=== PATIENT | male | born 1945 | race African-American/Black ===

== ENCOUNTER → 2016-11-07 | Outpatient (CLI) | payer OTHER, MEDICARE | LOC: RAD 10:44 | DX: M25.571 Pain in right ankle and joints of right foot (principal) ==

== ENCOUNTER → 2017-02-09 | Outpatient (CLI) | payer OTHER, MEDICARE ==
[~2017-02-09] MED LIST: ALDACTONE25 MG PO; AMARYL2 MG PO; ASPIR 8181 MG PO; ATORVASTATIN CA40 MG PO; COLACE100 MG PO; COREG3.125 MG PO; COZAAR 25 MG TA25 M1 PO; DUONEB 2.5-0.5 M3 ML INH; LASIX 40 MG TAB40 M2 PO; LIDODERM 5%1 PATC1 TRANSDERM; MILK OF MA400 MG/5 M PO; MIRALAX17 GM PO; ONDANSETRON HCL4 M2 PO; PLAVIX 75 MG TA75 M1 PO; POTASSIUM20 PO; SENOKOT-S1 TA1 PO; TRAMADOL 50 MG50 MG PO; URISTAT95 MG PO; ZANTAC 150MG T150 MG PO
== END ==
LOC: RAD 16:31
DX: M47.896 Other spondylosis, lumbar region (principal); K59.00 Constipation, unspecified

== ENCOUNTER → 2017-02-20 | Outpatient (CLI) | payer OTHER, MEDICARE | LOC: CAT 11:09 | DX: M48.06 Spinal stenosis, lumbar region (principal); M47.896 Other spondylosis, lumbar region ==

== ENCOUNTER → 2017-04-12 | Outpatient (CLI) | payer OTHER, MEDICARE ==
[~2017-04-12] MED LIST changes: +ASPIRIN81 M2 PO; +CARVEDILOL12.5 MG PO; +DIGOXIN125 MCG PO; +IRON325 PO; +MULTIVITAMINS1 EAC7 PO; +NORCO 5-325 TA1 EACH PO; +OYSTER SHELL 51 EACH PO; +PHENAZOPYRIDIN200 M2 PO; +PROTONIX40 M1 PO; +TAPAZOLE5 MG PO; +TRADJENTA5 MG; +VENELEX OINTMEN60 GM TP
== END | disposition home or self-care (01) ==
LOC: SPEC 04-07 10:33
DX: M48.56XA Collapsed vertebra, not elsewhere classified, lumbar region, initial encounter for fracture (principal); G89.29 Other chronic pain; Z88.0 Allergy status to penicillin; I10 Essential (primary) hypertension; E11.9 Type 2 diabetes mellitus without complications; E78.00 Pure hypercholesterolemia, unspecified; Z95.1 Presence of aortocoronary bypass graft

== ENCOUNTER → 2017-04-18 | Outpatient (CLI) | payer OTHER, MEDICARE ==
[~2017-04-18] VITALS: Ht 182.9 cm; Wt 72.1 kg
--- NOTE | ~2017-04-18 | HPC ---
[facility] [place] [address] PAIN MANAGEMENT CONSULTATION Name: ZHAO RYAN Room #: REG ANI DixonProsperAdelsoProsper#: [id number] Admission: 04/18/17 Attend Phys: Felipe Encarnacion DO Discharge: Date of : 41 Report #: [id number] THIS REPORT FOR: //name// CC: Felipe Foy MD DATE OF SERVICE: 04/18/2017 REFERRING PHYSICIAN: Dr. Ajay Foy. CHIEF COMPLAINT: Axial back pain. HISTORY OF PRESENT ILLNESS: As you know, the patient is a 72-year-old male, who sustained a fall, leading to compression fracture of the lumbar spine. He was planning to undergo a vertebral augmentation with Dr. Omer, who determined, once the patient was seen at his L1 compression fracture, is not the source of the patient's pain despite the fact the patient is pointing directly to the area and is experiencing no symptoms in radicular fashion. He is easily able to locate pain directly over his L1 compression fracture. He indicates today level of pain at 5/10. States movement exacerbates symptoms, rest appears to improve pain. He describes the pain as periodic and intermittent, describes the pain as aching, throbbing and sharp. He provides no neuropathic descriptors in regards to pain. He reports he was involved in a fall in the shower that led to his symptoms. He was evaluated for his compression fracture, had established an appointment to undergo vertebral augmentation and then was subsequently referred to our clinic as they did not feel his symptoms correlated. PAST MEDICAL HISTORY: 1. Hypertension. 2. Rheumatic fever. 3. Diabetes mellitus type 2. 4. Coronary artery disease. 5. Degenerative joint disease. 6. Osteoarthritis. 7. Gastroesophageal reflux disease. 8. Dyslipidemia. PAST SURGICAL HISTORY: See chart. SOCIAL HISTORY: The patient is retired. He retired about 7 months ago. He is not receiving workman's compensation nor is he trying to obtain disability benefits. He is accompanied by his . He denies tobacco use. He denies IV or illicit drug use. Denies any chronic alcohol use. REVIEW OF SYSTEMS: Positive for decrease in appetite, wearing corrective [facility] [address] [place] [address] PAIN MANAGEMENT CONSULTATION Name: ZHAO RYAN Room #: REG [facility] Rose#: [id number] Admission: 04/18/17 Attend Phys: Felipe Encarnacion DO Discharge: Date of : 41 Report #: [id number] eyewear, blurred and double vision, heart trouble, shortness of breath walking or lying flat, incontinence and dribbling to urine, low back pain, dyslipidemia, hypertension, diabetes mellitus type 2. All other review of systems negative per 12-point review of systems other than those listed in history of present illness. Pain impact score 54/70, indicating severe interference of daily activities secondary to pain. ALLERGIES: PENICILLIN. CURRENT MEDICATIONS: Aspirin 81 mg per day, calcium carbonate 1 tab per day, digoxin 0.125 mg once a day, ferrous sulfate 325 mg per day, hydrocodone 5/325 one tab every 8 hours p.r.n. for pain, losartan 25 mg per day, Tapazole 5 mg twice a day, pantoprazole 40 mg per day, Pyridium 200 mg 3 times a day, Tradjenta 5 mg once a day, carvedilol 12.5 mg twice a day, docusate sodium 100 mg per day, MiraLax 17 g per day, losartan 25 mg per day, Lidoderm patch applied topically every 12 hours, DuoNeb inhaled 4 times a day, furosemide 40 mg per day, atorvastatin 40 mg per day. IMAGING: MRI lumbar spine obtained 02/20/2017 shows an L1 compression fracture with 25% depression, no significant retropulsion, severe multilevel spondylosis and severe spinal stenosis L3-L4 and L4-L5. PHYSICAL EXAMINATION: VITAL SIGNS: Blood pressure 111/70, pulse 70, respiratory rate 14 and unlabored. The patient is 100% on room air, height 6 feet tall, weight 159 pounds, BMI calculated 21.6. GENERAL: Well developed, well nourished, well hydrated 72-year-old male. He appears his stated age. He is placing pain score today 5/10. HEENT: Normocephalic, atraumatic. Pupils equal, round, reactive to light. Extraocular muscles are intact. Sclerae nonicteric without injection. NEUROLOGIC: Cranial nerves 2-12 grossly intact. Speech is fluent. The patient deemed an excellent historian. LUNGS: Clear; no wheeze, rhonchi or rales. CARDIOVASCULAR: Regular. No appreciable gallop or rub. ABDOMEN: Soft, nontender, nondistended, normoactive bowel sounds. EXTREMITIES: Show no clubbing, no cyanosis, no edema. MUSCULOSKELETAL: The patient has exquisite tenderness to palpation over the spinous process at L1, the paraspinal musculature in the area is also extremely tender to palpation. No ecchymosis. Seated straight leg raising negative. Supine straight leg raising negative. Briseida's test negative. Modified Gaenslen's positive for axial low back pain. Ankle clonus negative. Babinski is negative. Muscle bulk and tone equal and symmetrical in lower extremities. He remains intact to light touch from L1 through S2 dermatomes. [address] [address] PAIN MANAGEMENT CONSULTATION Name: ZHAO RYAN Room #: REG [facility]#: [id number] Admission: 04/18/17 Attend Phys: Felipe Encarnacion DO Discharge: Date of : 41 Report #: [id number] ASSESSMENT: 1. Acute L1 compression fracture status post fall. 2. Severe spinal stenosis of lumbar spine. 3. Displacement of lumbar intervertebral disk. 4. Lumbosacral spondylosis. 5. Lumbar degeneration. PLAN: 1. The patient has been referred to our service for evaluation for an L1 compression fracture. The patient is exquisitely tender at the L1 area. His exacerbating factors of movement, sneezing and coughing would correlate to the patient's L1 compression fracture, specifically. Certainly, he does have underlying spinal stenosis, but there is no radiation of symptoms from the back. This appears to be completely related to the L1 compression fracture. The patient indicates that he was sent for osteoplastic procedure with Interventional Radiology and they determined his symptoms did not correlate, though on physical exam today they perfectly correlate with L1 compression and subsequent fracture pain, no radiation in a lumbar radicular fashion or worrisome for any worsening of the patient's spinal stenosis. We discussed with the patient options for treatment. Following was provided. 2. The patient will be sent for evaluation and treatment with Interventional Radiology at [facility]. The consult has been provided. The patient will take imaging from his recent MRI with him for this evaluation. Upon evaluation, if he is determined to be a candidate, he will undergo vertebral augmentation. If symptoms then continue, we would consider possible interventional therapies such as an epidural injection to address what residual pain may be present. 3. The patient was originally referred to our clinic for an epidural injection. The symptoms the patient is experiencing is related to the vertebral compression fracture at L1 and these are not treated with epidural injections as the position of the shots is well posterior to the vertebral body and will provide no improvement in symptoms for compression issues. They will help with the inflammatory processes that may be occurring in and around the spinal cord at the level, but again the patient is experiencing no radicular component at this time. 4. We have provided the patient a refill of his pain medication. He will continue his pain medication on an as-needed basis. The patient was given a prescription. If he wishes to fill, he may do so. He does have medication available through his PCP. 5. We will see the patient back in followup visit on an as-needed basis. We would be available to discuss his case further with Interventional Radiology at [facility] if necessary. Again, we wish to offer our services to assist in coordinating the patient's care. 6. We wish to thank Dr. Foy for the referral of this patient to our [address] [address] PAIN MANAGEMENT CONSULTATION Name: KAVITHA RYANWANDA Heath Room #: REG [facility] Rose#: [id number] Admission: 04/18/17 Attend Phys: Felipe Encarnacion DO Discharge: Date of : 41 Report #: [id number] clinic. We will keep you apprised of his response to treatment. Again, we wish to thank you for the opportunity to participate in his care. <ELECTRONICALLY SIGNED> By: Felipe Encarnacion DO 04/25/17 [id number] 0900 Felipe Encarnacion DO /nt
[2017-04-18 13:43] VITALS: BP 111/70
== END | disposition home or self-care (01) ==
LOC: PAIN 07:16
DX: S32.019A Unspecified fracture of first lumbar vertebra, initial encounter for closed fracture (principal); I10 Essential (primary) hypertension; E11.9 Type 2 diabetes mellitus without complications; I25.10 Atherosclerotic heart disease of native coronary artery without angina pectoris; M19.90 Unspecified osteoarthritis, unspecified site; K21.9 Gastro-esophageal reflux disease without esophagitis; E78.5 Hyperlipidemia, unspecified; I00 Rheumatic fever without heart involvement; Z88.0 Allergy status to penicillin; M48.06 Spinal stenosis, lumbar region; M47.817 Spondylosis without myelopathy or radiculopathy, lumbosacral region